=== PATIENT | female | born 2000 | race Caucasian/White ===

== ENCOUNTER 2023-09-19 11:04 | Observation (INO) | payer OTHER ==
[2023-09-18 11:29] VITALS: BMI 35.0
[2023-09-19] MEDS ORDERED: Famotidine/PF 20 mg/2ml Vial ONE (12:10)
[2023-09-19] MEDS ORDERED: Midazolam HCl 2 mg/2 ml Vial ONE (12:11)
[2023-09-19 12:18] LABS: Hematocrit 40.5 % (36.0-47.0)
[2023-09-19] MEDS ORDERED: Lidocaine 1% (PF) 30 ML VIAL ONE (12:18)
[2023-09-19] MEDS ORDERED: EPINEPHrine 1 MG/ML VIAL ONE (12:18)
[2023-09-19] MEDS ORDERED: PROPOFOL 20 ML ONE ×2 (12:19→13:43)
[2023-09-19] MEDS ORDERED: fentaNYL 50 mcg/mL 1 mL Vial ONE ×6 (12:19→15:35)
[2023-09-19] MEDS ORDERED: Lidocaine 2% PF 5 ML VIAL ONE (12:20)
[2023-09-19] MEDS ORDERED: Rocuronium Bromide 10 MG/ML (10ML VIAL) ONE (12:21)
[2023-09-19 12:27] LABS: BHCG - Serum Negative (NEGATIVE); Pregs Control Background? CLEAR/WHITE (CLR/WHITE); Pregs Control Bar Appear? YES (CONTROL BAR)
[2023-09-19] MEDS ORDERED: Clindamycin/D5W 900 mg/50 ml Premix Bag ONE (12:34)
[2023-09-19] MEDS ORDERED: Dexamethasone 20 MG/5 ML VIAL ONE (13:01)
[2023-09-19] MEDS ORDERED: Ondansetron PF 4 MG/2 ML Vial ONE (14:01)
[2023-09-19] MEDS ORDERED: SUGAMMADEX SODIUM 200 MG/2 ML VIAL ONE (14:01)
[2023-09-19] MEDS ORDERED: Hydrocodone-Acetamin 15 ML UDCUP PO PRN (15:01)
[2023-09-19] MEDS ORDERED: Ondansetron PF 4 MG/2 ML Vial IVP PRN (15:04)
[2023-09-19] MEDS: Sodium Chloride 0.45% 1,000 ML IV SCH (17:00)
[2023-09-19 17:05] LABS: Calcium 8.3 mg/dL (7.8-10.44)
[2023-09-19] MEDS: Morphine 4 MG/ML VIAL SLOW IVP PRN (17:23)
[2023-09-19] MEDS: Hydrocodone-Acetamin 15 ML UDCUP PO PRN (20:22)
[2023-09-19] MEDS: Calcium Carbonate 500 MG TAB PO SCH (20:24)
[2023-09-19] MEDS: Calcitriol 0.25 MCG CAP PO SCH (22:01)
[2023-09-20] MEDS: Calcitriol 0.25 MCG CAP PO SCH (09:13)
[2023-09-20 15:19] VITALS: BP 132/81; TEMP 98
[2023-09-20 15:36] LABS: ALT (SGPT) 14 U/L (8-55); AST (SGOT) 15 U/L (5-34); Albumin 3.7 g/dL (3.5-5.0); Alkaline Phosphatase 73 U/L (40-110); Anion Gap 18 mmol/L (10-20); BUN (Urea Nitrogen) 8 mg/dL (7.0-18.7); Bilirubin, Total 0.6 mg/dL (0.2-1.2); Calc. Creatinine Clearance 200 mL/min (70-130); Calcium 8.2 mg/dL (7.8-10.44); Carbon Dioxide 24 mmol/L (22-29); Chloride 103 mmol/L (98-107); Estimated GFR 127; Globulin 3.4 g/dL (2.4-3.5); Glucose 96 mg/dL (70-105); Magnesium 1.7 mg/dL (1.6-2.6); Potassium 3.2 mmol/L (3.5-5.1); Protein, Total 7.1 g/dL (6.0-8.3); Sodium 142 mmol/L (136-145)
== END 2023-09-20 18:48 | disposition home or self-care (01) ==
LOC: SDC 11:04 → SURG A 16:46
PROVIDERS: ADMIT Otolaryngology Plastic Surgery within the Head & Neck; ATTEND Otolaryngology Plastic Surgery within the Head & Neck
PROC: 0GTK0ZZ Resection of Thyroid Gland, Open Approach (ICD-10-PCS; principal; 2023-09-20)
DX: C73 Malignant neoplasm of thyroid gland (principal); Z80.8 Family history of malignant neoplasm of other organs or systems; F32.A Depression, unspecified; F41.9 Anxiety disorder, unspecified; Z79.899 Other long term (current) drug therapy; Z88.0 Allergy status to penicillin
CPT/HCPCS: 36415; 82310; 83735; 83970; 84703; 85014; 88307; C1889; J0171; J1100; J2001; J2250; J2270; J2405; J2704; J3010; J3490; S0028